=== PATIENT | female | born 1955 | race Caucasian/White ===

== ENCOUNTER → 2020-01-10 17:04 | Outpatient (CLI) | payer MEDICARE, SELFPAY ==
--- NOTE | 2020-01-10 17:10 | DI.MRI.S_ITS ---
PROCEDURE: MR SHOULDER LT WO CON INDICATIONS: Left shoulder pain TECHNIQUE: Noncontrast oblique coronal T2 fast spin echo with fat saturation, oblique sagittal T1 spin echo and T2 fast spin echo with fat saturation, axial T1 spin echo and T2 fast spin echo with fat saturation through the shoulder. COMPARISON: None. FINDINGS: Image quality: Excellent. Rotator cuff: Tendinosis and low-grade articular and bursal surface partial thickness tear involving distal supraspinatus and infraspinatus at their insertions on the humeral head is seen extending to musculotendinous junction. Distal subscapularis tendon is intact. Sagittal images demonstrate no significant muscle atrophy. Bones and bursae: No bone marrow contusions or fractures. Mild to moderate acromioclavicular joint osteoarthritic changes are seen with downward osteophyte formation depressing the musculotendinous junction of supraspinatus. Mild to moderate glenohumeral joint osteoarthritic changes also seen. Nonspecific subcortical cyst formation in posterior aspect of humeral head is seen near surgical neck of humerus. No pathologic subacromial-subdeltoid or subcoracoid bursal fluid is present. Capsule and soft tissues: In the absence of intra-articular contrast, there is suggestion of superior anterior labral tear at 12 to 1 o'clock position. The glenohumeral ligaments appear intact. The long head of the biceps tendon demonstrates normal location and morphology. The rotator interval appears normal, without fibrosis. The coracohumeral ligament is normal in thickness. IMPRESSION: 1. Tendinosis and low-grade articular and bursal surface partial thickness tear involving distal supraspinatus and infraspinatus at their insertions on humeral head extending to musculotendinous junction. No full-thickness rotator cuff tendon rupture. No significant muscle atrophy. 2. Mild to moderate acromioclavicular joint and glenohumeral joint osteoarthritis. 3. Suggestion of superior anterior labral tear at 12 to 1 o'clock position. Dictated by: Marco Mohamud M.D. on 01/11/2020 at 8:47 Approved by: Marco Mohamud M.D. on 01/11/2020 at 8:51
== END ==
PROVIDERS: Referring Provider Family Medicine; Visit Provider Family Medicine
DX: M75.42 Impingement syndrome of left shoulder (principal); M75.112 Incomplete rotator cuff tear or rupture of left shoulder, not specified as traumatic; M19.012 Primary osteoarthritis, left shoulder
CPT/HCPCS: 73221